=== PATIENT | male | born 1975 ===

== ENCOUNTER 2017-12-31 15:21 | Emergency (ER) | payer OTHER ==
[~2017-12-31] VITALS: Ht 185.4 cm; Wt 93.0 kg
[~2017-12-31 15:21] MED LIST: AMOX500 PO; Keflex500 MG PO; NAPR500 PO; TOBDEXOPSU LEFTEYE
== END 2017-12-31 16:50 ==
LOC: ER 15:21
DX: S20.212A Contusion of left front wall of thorax, initial encounter (principal); F17.200 Nicotine dependence, unspecified, uncomplicated; Z88.8 Allergy status to other drugs, medicaments and biological substances; Z88.0 Allergy status to penicillin; W50.0XXA Accidental hit or strike by another person, initial encounter; Y93.75 Activity, martial arts
CPT/HCPCS: 71101; 99283-25

== ENCOUNTER 2021-02-19 18:50 | Emergency (ER) | payer OTHER ==
[~2021-02-19] VITALS: Ht 182.9 cm; Wt 99.8 kg
[~2021-02-19 18:50] MED LIST changes: +Bactrim Ds Tab1 EACH PO; +OMEP20ER PO
[2021-02-19] MEDS ORDERED: Bactrim Ds Tab1 EACH PO (19:50)
== END 2021-02-19 20:16 | disposition home or self-care (01) ==
LOC: ER 18:50
DX: L02.415 Cutaneous abscess of right lower limb (principal); L01.00 Impetigo, unspecified; F17.200 Nicotine dependence, unspecified, uncomplicated; Z88.8 Allergy status to other drugs, medicaments and biological substances; Z88.0 Allergy status to penicillin; Z86.14 Personal history of Methicillin resistant Staphylococcus aureus infection
CPT/HCPCS: 10060; 87070; 87075; 87077; 87186; 87205; 99283-25